=== PATIENT | male | born 1995 | race Hispanic/Latino ===

== ENCOUNTER 2018-03-02 23:54 | Emergency (ER) | payer SELFPAY ==
[~2018-03-02] VITALS: Ht 182.9 cm; Wt 114.3 kg
== END 2018-03-03 00:36 | disposition left against medical advice (07) ==
LOC: ER 23:54
DX: R53.1 Weakness (principal)
CPT/HCPCS: 93005

== ENCOUNTER 2019-06-13 20:21 | Emergency (ER) | payer BC ==
[~2019-06-13] VITALS: Ht 182.9 cm; Wt 124.7 kg
[2019-06-13] MEDS ORDERED: ADDERALL 30 MG30 MG (20:35)
[2019-06-13] MEDS ORDERED: ONDANSETRON HCL INJ 2MG/ML 2ML 2 MG/ML VIAL IV PRN (21:00)
[2019-06-13] MEDS ORDERED: ACETAMINOPHEN 325 MG TAB PO ONE (21:00)
[2019-06-13] MEDS ORDERED: FAMOTIDINE 20 MG/2 ML VIAL IV ONE ×2 (21:00→21:03)
[2019-06-13] MEDS ORDERED: ACETAMINOPHEN 325 MG TAB ONE (21:02)
[2019-06-13] MEDS ORDERED: ONDANSETRON HCL INJ 2MG/ML 2ML 2 MG/ML VIAL ONE (21:02)
--- NOTE | 2019-06-13 21:18 | Diagnostic Imaging Report ---
EXAMINATION: PA and lateral views of the chest. COMPARISON: None available CLINICAL HISTORY: Chest pain DISCUSSION: The lungs are well inflated. No focal airspace consolidation, pleural effusion, or pneumothorax. Cardiomediastinal contour and pulmonary vasculature are within normal limits. No acute osseous abnormalities. IMPRESSION: No acute cardiopulmonary abnormalities. Signed by: Dr. Sy Bagley M.D. on 06/13/2019 9:15 PM
[2019-06-13 21:56] VITALS: BP 119/70
== END 2019-06-13 21:45 | disposition home or self-care (01) ==
LOC: FSED 20:21
DX: R07.89 Other chest pain (principal); R94.31 Abnormal electrocardiogram [ECG] [EKG]; F41.9 Anxiety disorder, unspecified; F90.9 Attention-deficit hyperactivity disorder, unspecified type; F17.210 Nicotine dependence, cigarettes, uncomplicated
CPT/HCPCS: 71046; 80053; 82553; 84484; 85025; 85379; 93005; 96374; 96375; 99284; J2405